=== PATIENT | male | born 2000 | race Caucasian/White ===

== ENCOUNTER 2022-03-26 22:59 | Emergency (ER) | payer MEDICAID ==
[~2022-03-26] VITALS: Ht 162.6 cm; Wt 47.6 kg
--- NOTE | 2022-03-26 23:10 | NUR ---
Patient to [facility] for evaluation. Side rails up. Report given to IHSAN ROMERO].
[2022-03-26 23:11] VITALS: BP_SYST 147
--- NOTE | 2022-03-26 23:15 | NUR ---
PT FROM HOME WITH C/O URINARY FREQ AND BURNING ACCOMPANIED WITH HEMETURIA. PT REPORTS N/V AND LOWER ABD PAIN X COUPLE OF DAYS. PT A&O X4 AND FOLLOWING COMMANDS.
[2022-03-26 23:30] LABS: BILIRUBIN,URINE NEGATIVE (NEGATIVE); BLOOD, URINE 1+ (NEGATIVE); CLARITY/URINE CLEAR (CLEAR); COLOR,URINE YELLOW (YELLOW); GLUCOSE,URINE NEGATIVE (NEGATIVE); KETONES,URINE NEGATIVE (NEGATIVE); LEUKOCYTE ESTERASE ,URINE NEGATIVE (NEGATIVE); NITRITE, URINE NEGATIVE (NEGATIVE); PH,URINE 7.5 (5.0-8.0); PROTEIN URINE NEGATIVE (NEGATIVE)
[2022-03-26] MEDS ORDERED: ONDANSETRON HCL 4 MG/2 ML VIAL IVP ONE (23:30)
[2022-03-26] MEDS ORDERED: NACL 0.9% 1,000 ML IV ONE (23:30)
[2022-03-26] MEDS ORDERED: KETOROLAC TROMETHAMINE 30 MG VIAL IVP ONE (23:30)
--- NOTE | 2022-03-26 23:35 | NUR ---
DR. ROMAN WITH PATIENT FOR MSE.
--- NOTE | 2022-03-26 23:48 | NUR ---
Patient to ER bed 04 to gown for evaluation. Side rails up.
[2022-03-26 23:56] LABS: BASOPHILS % (AUTO) 0.5 % (0.0-2.0); EOSINOPHILS # (AUTO) 0.1 K/uL (0.0-0.4); EOSINOPHILS % (AUTO) 1.6 % (0.0-4.0); HEMATOCRIT 46.8 % (36-54); HEMOGLOBIN 15.9 g/dL (14.0-18.0); LYMPHOCYTES # (AUTO) 2.4 K/uL (1.0-5.5); MEAN CORPUSCULAR HEMOGLOBIN 31 pg (27-31); MEAN CORPUSCULAR HGB CONC 34 % (32-36); MEAN CORPUSCULAR VOLUME 91 fL (79.0-98.0); MONOCYTES # (AUTO) 0.6 K/uL (0.0-1.0); MONOCYTES % (AUTO) 7.2 % (1.7-9.3); NEUTROPHILS # (AUTO) 4.9 K/uL (1.8-7.7); NEUTROPHILS % (AUTO) 60.7 % (40.0-70.0); PLATELET COUNT (AUTO) 239 K/uL (130-430); RED BLOOD CELL COUNT(AUTO) 5.13 MIL/uL (4.2-6.2); RED CELL DISTRIBUTION WIDTH 12.9 % (9.0-15.0)
--- NOTE | 2022-03-27 00:18 | NUR ---
pt resting on gurney with NS Bolus infusing. pt a & o x 4. pupils perrl. c/o urinary pain for the past couple of days. denies any additional complaints. no acute distress noted. gurney in lowest locked position. will continue to monitor.
[2022-03-27 00:27] LABS: CALCIUM 9.3 mg/dL (8.4-11.0); CREATININE 0.65 mg/dL (0.55-1.30)
[2022-03-27 00:31] LABS: ALBUMIN 4.3 g/dL (3.4-4.8); TOTAL BILIRUBIN 0.6 mg/dL (0.0-1.0)
[2022-03-27 00:54] LABS: BACTERIA,URINE None Seen /HPF (None Seen)
[2022-03-27] MEDS ORDERED: cefTRIAXone 500 MG in LIDOCAINE 1%, 20 ML MDV 1 ML IM ONE (01:30)
--- NOTE | 2022-03-27 01:50 | NUR ---
PT MEDICATED PER MD ORDER. SEE eMAR.
[2022-03-27] MEDS ORDERED: DOXY100C PO (01:51)
--- NOTE | 2022-03-27 02:23 | NUR ---
Patient given written and verbal discharge instructions and verbalizes understanding. ER MD discussed with patient the results and treatment provided. Patient in stable condition. ID arm band removed. IV catheter removed intact and dressing applied, no active bleeding. Rx of Vibramycin given. Patient educated on pain management and to follow up with PMD. Pain Scale 0/10. Opportunity for questions provided and answered. Medication side effect fact sheet provided.
[2022-03-27 02:25] VITALS: BP_SYST 138
== END 2022-03-27 02:25 | disposition home or self-care (01) ==
LOC: SED 22:59
DX: R31.9 Hematuria, unspecified (principal); R30.0 Dysuria; R11.0 Nausea; Z79.899 Other long term (current) drug therapy
CPT/HCPCS: 99285; 74176; 96361; 86592; 80053; 81000; 83690; 85025; 36415; 76376; 96374; 96375; 96372; J7030; J0696; J1885; J2405